=== PATIENT | male | born 1980 | race Caucasian/White ===

== ENCOUNTER 2021-06-27 02:12 | Outpatient (CLI) | payer MEDICAID, SELFPAY ==
[2021-06-27 12:45] LABS: ALT 78 U/L (16-63); AST 39 U/L (15-37); Albumin 4.2 g/dL (3.4-5.0); Alkaline Phosphatase 64 U/L (46-116); Anion Gap 9.6 mmol/L (3-11); BUN 15 mg/dL (7-18); Bilirubin, Total 0.4 mg/dL (0.2-1.0); CO2 27.4 mmol/L (21.0-32.0); CREATININE 0.9 mg/dL (0.70-1.30); Calcium 8.7 mg/dL (8.5-10.1); Calculated LDL 82 mg/dL (<100); Chloride 102 mmol/L (98-107); Cholesterol 157 mg/dL (<200); Glucose 115 mg/dL (74-106); HDL Cholesterol 35 mg/dL (40-60); Potassium 4.5 mmol/L (3.5-5.1); Sodium 139 mmol/L (136-145); Total Protein 7.2 g/dL (6.4-8.2); Triglyceride 200 mg/dL (<150)
== END 2021-06-27 02:13 | disposition home or self-care (01) ==
LOC: LBO 02:13
PROVIDERS: Visit Provider Naturopath
DX: K76.0 Fatty (change of) liver, not elsewhere classified (principal); R73.03 Prediabetes
CPT/HCPCS: 36415; 80053; 80061

== ENCOUNTER 2022-01-12 09:46 | Emergency (ER) | payer MEDICAID, SELFPAY ==
[2022-01-12 09:52] VITALS: BP 170/94; PULSE 72; RESP 16; TEMP 36.3; O2SAT 99
--- NOTE | 2022-01-12 10:07 | ED.GENADUL_ITS ---
Discharge Plan Disposition Patient Disposition: HOME Condition: Stable Discharge Details Clinical Impression: Tick bite Primary Care Provider: Unknown,Unknown ED Provider: Bashir Renee Discharge Instructions Instructions: Tick Bite (ED) Additional Instructions: You have been provided with a one-time dose of doxycycline. Please watch for new or worsening symptoms and return to the ER for any concerns. I recommend that you contact your primary care provider tomorrow to discuss your ER visit and potential need for outpatient reevaluation if symptoms were to evolve. Medical Decision Making 41-year-old gentleman who noticed a tick bite to his left leg 2 days ago, fully removed tick and cleaned the area with alcohol presents concerned that he may need to initiate antibiotic therapy for redness around the tick bite. Clinically this appears to be more likely a localized irritation than a true cellulitis or consistent with erythema migrans. Plan to provide a single dose of 200 mg p.o. doxycycline. Patient is comfortable with this plan Standard discharge and return precautions were provided. Patient understands, is agreeable to this plan, and has no additional questions or concerns upon discharge. This documentation was generated using [employer] system, please disregard any oddities of phrase or misspellings. HPI General Mode of arrival: ambulatory . Date/Time Provider Initiated Documentation: 01/12/22 10:07 . Limitations to Documentation: no limitations . Information obtained by: patient . History of Present Illness 41 year old M presents to the emergency department with the chief complaint of Tick bite, described as mild, with intensity rated at 1. Quality is described as aching, and is localized to the left and lower extremity. Patient reports no radiation. Patient started experiencing this day(s) (2) and it has been constant. No relieving factors improve symptom(s), No exacerbating factors reported . Patient notes other (Presents at bite site). Patient did receive the following treatments prior to arrival, none General Stated Complaint: RashLesion GONZALO: 4 Review of Systems Constitutional Constitutional: Denies fever(s) and Denies weakness Musculoskeletal Musculoskeletal: Denies myalgias, Denies arthralgias, Denies numbness, Denies stiffness and Denies tingling Integumentary/Breasts Skin/Breast: Reports erythema and Denies rash Neurologic Neurologic: Denies numbness, Denies tingling and Denies weakness PFSH All Active Problems Tick bite (Acute) Social History Smoking risk assessment performed?: No Exam Const General: cooperative, healthy appearing, comfortable and no acute distress Orientation: alert and awake [facility] Head: normal to inspection, normocephalic and atraumatic Eyes Conjunctivae: conjunctivae normal Neck Neck: normal visual inspection, full ROM, trachea midline and supple Resp Effort & Inspection: normal respiratory effort and able to speak in complete sentences Back/Spine/Pelvis Back: No back tenderness Skin General skin exam: erythema Full body images: 1. There is a 0.5 cm circular area of macular, blanchable, nontender erythema. Centrally there is a puncture wound without any obvious foreign body. There is no warmth or tenderness. No induration or drainage. No lymphangitic streaking. The rash is not consistent with erythema migrans. Neuro General: patient alert, patient awake, moves all extremities and no focal motor deficits Cognition: normal cognition Speech: speech normal Gait: normal gait Motor: muscle tone normal throughout Sensory Exam: no sensory deficits noted Extrem General: full ROM Psych Appearance: grossly normal Mental Status: mental status grossly normal Course Vital Signs Vital signs: Vital Signs Temperature 36.3 C L 01/12/22 09:52 Pulse 72 01/12/22 09:52 Respiratory Rate 16 01/12/22 09:52 Blood Pressure 170/94 H 01/12/22 09:52 Pulse Oximetry 99 01/12/22 09:52 Temperature 36.3 C L 01/12/22 09:52 Temperature Source Tympanic 01/12/22 09:52 Pulse 72 01/12/22 09:52 Respiratory Rate 16 01/12/22 09:52 Blood Pressure 170/94 H 01/12/22 09:52 Blood Pressure Position Sitting 01/12/22 09:52 Pulse Oximetry 99 01/12/22 09:52 Oxygen Delivery Method Room Air 01/12/22 09:52 Oxygen Flow Rate 0 01/12/22 09:52 Pain Level 0 01/12/22 09:52
[2022-01-12] MEDS: Doxycycline Hyclate 100 MG CAP 200 MG PO (10:22)
== END 2022-01-12 10:25 | disposition home or self-care (01) ==
PROVIDERS: Emergency Provider Physician Assistant
DX: S61.452A Open bite of left hand, initial encounter (principal); W57.XXXA Bitten or stung by nonvenomous insect and other nonvenomous arthropods, initial encounter
CPT/HCPCS: 99283; 99284

== ENCOUNTER 2022-04-02 11:46 | Outpatient (REF) | payer MEDICAID, SELFPAY ==
--- NOTE | 2022-04-02 11:20 | SKI_PTH ---
PATIENT: Timoteo Mackenzie LOC: [facility] U#:[id number] AGE/SX: 41/M ROOM: RE04/02/[address]: Diamante Kennedy : 1980 BED: DIS: 04/02/2022 SPEC #: [id number] RECD: 04/02/22 18:03 STATUS: LAURIE REStella #: [id number] TRACY: 04/02/22 11:[address]: Diamante Kennedy DEPT: Surgical Specimen RECD BY: Olivia Mason ENTERED: 04/02/22 18:03 SP TYPE: CLARITZA LION DR: Cj Louis MD Tissues: 1 - SKIN BIOPSY(SHAVE/PUNCH) Procedures: GROSS AND MICRO LEVEL 4 Comments: [id number]
== END 2022-04-02 11:47 | disposition home or self-care (01) ==
LOC: LBN 11:46
PROVIDERS: PCP Naturopath; Referring Provider Otolaryngology; Visit Provider Registered Nurse Maternal Newborn
DX: B07.8 Other viral warts (principal)
CPT/HCPCS: 88305

== ENCOUNTER 2025-01-26 01:37 | Outpatient (CLI) | payer SELFPAY ==
[2025-01-26 09:36] LABS: Hemoglobin A1C 5.9 % (<5.7)
[2025-01-26 09:46] LABS: ALT 40 U/L (16-63); AST 21 U/L (15-37); Albumin 4.2 g/dL (3.4-5.0); Alkaline Phosphatase 73 U/L (46-116); Anion Gap 8.8 mmol/L (3-11); BUN 16 mg/dL (7-18); Bilirubin, Total 0.6 mg/dL (0.2-1.0); CO2 30.2 mmol/L (21.0-32.0); Calcium 8.9 mg/dL (8.5-10.1); Chloride 102 mmol/L (98-107); Cholesterol 186 mg/dL (<200); Glucose 140 mg/dL (74-106); HDL Cholesterol 34 mg/dL (>or=40); Potassium 4.3 mmol/L (3.5-5.1); Sodium 141 mmol/L (136-145); TSH 2.24 uIU/mL (0.36-3.74); Total Protein 7.6 g/dL (6.4-8.2)
== END 2025-01-26 01:38 | disposition home or self-care (01) ==
LOC: LBO 01:37
PROVIDERS: PCP Naturopath; Visit Provider Naturopath
DX: Z00.00 Encounter for general adult medical examination without abnormal findings (principal)
CPT/HCPCS: 36415; 80053; 80061; 83036; 84443